=== PATIENT | female | born 1995 ===

== ENCOUNTER 2016-07-30 21:05 | Emergency (ER) | payer OTHER ==
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
[2016-07-30 21:37] VITALS: BP 124/84; PULSE 101; TEMP 98; O2SAT 98
[2016-07-30 22:33] VITALS: RESP 20
== END 2016-07-30 22:32 | disposition home or self-care (01) ==
LOC: C.ER 21:05
DX: S13.4XXA Sprain of ligaments of cervical spine, initial encounter (principal); V43.52XA Car driver injured in collision with other type car in traffic accident, initial encounter; Y92.410 Unspecified street and highway as the place of occurrence of the external cause